=== PATIENT | male | born 1980 | race Caucasian/White ===

== ENCOUNTER 2016-11-30 17:51 | Emergency (ER) | payer OTHER ==
[~2016-11-30 17:51] MED LIST: BAYER ASPIRIN325 M1 PO; VOLTAREN75 MG PO
== END 2016-11-30 19:10 | disposition home or self-care (01) ==
LOC: CFTX 17:51 → CED 17:51 → CFTX 18:58
DX: L23.7 Allergic contact dermatitis due to plants, except food (principal); F17.200 Nicotine dependence, unspecified, uncomplicated; Z79.82 Long term (current) use of aspirin
CPT/HCPCS: 96372; 99283; J1100